=== PATIENT | female | born 1980 | race Caucasian/White ===

== ENCOUNTER → 2022-06-28 10:38 | Outpatient (BNVA) | payer MEDICAID, SELFPAY | PROVIDERS: PCP General Practice; Visit Provider Surgery | DX: K64.5 Perianal venous thrombosis (principal) | CPT/HCPCS: 99202 ==

== ENCOUNTER 2023-02-25 13:30 | Outpatient (REF) | payer MEDICAID, SELFPAY ==
--- NOTE | ~2023-02-25 | MM_ITS ---
EXAMINATION: MM SCREENING DIGITAL BREAST TOMOSYNTHESIS, BILATERAL CLINICAL INFORMATION: Screening. Asymptomatic. The lifetime risk of breast cancer based on the Tyrer-Cuzick Model is 8.2%. COMPARISON: Mammography: There are no prior exams for comparison. TECHNIQUE: Digital breast tomosynthesis is performed in both the craniocaudal and mediolateral oblique views along with computer-aided detection (CAD). Synthesized 2D images are generated from the tomosynthesis. FINDINGS: There are scattered areas of fibroglandular density (ACR BI-RADS breast composition Category b). There are faint calcifications in the upper outer quadrant of the left breast for which additional mammographic imaging with magnification is advised. There are no suspicious masses or areas of architectural distortion in the left breast. There are no mammographic signs of malignancy in the right breast. MM/MM tomosynthesis screening BI IMPRESSION: Grouped calcifications in the left breast warrant additional mammographic imaging magnification. No mammographic signs of malignancy right breast. ASSESSMENT: BI-RADS BI-RADS 0 - Incomplete: Needs additional Imaging. RECOMMENDATION: Additional views of the left breast. Radiology department staff will contact the patient for additional imaging. 1 year F/U This examination should not preclude the clinical evaluation of a suspicious palpable abnormality. This patient's information was entered into a reminder system with a target due date for their next mammogram.
== END 2023-02-25 13:31 | disposition home or self-care (01) ==
LOC: HO.MAMMO 13:30
PROVIDERS: PCP Family Medicine; Visit Provider Family Medicine
DX: Z12.31 Encounter for screening mammogram for malignant neoplasm of breast (principal)
CPT/HCPCS: 77063; 77067

== ENCOUNTER → 2023-02-25 13:45 | Outpatient (BNV) | payer MEDICAID, SELFPAY | PROVIDERS: PCP Family Medicine; Visit Provider Radiology Diagnostic Radiology | DX: Z12.31 Encounter for screening mammogram for malignant neoplasm of breast (principal) | CPT/HCPCS: 77063; 77067 ==

== ENCOUNTER → 2023-03-22 09:00 | Outpatient (BNV) | payer MEDICAID, SELFPAY | PROVIDERS: PCP Family Medicine; Visit Provider Radiology Diagnostic Radiology | DX: R92.1 Mammographic calcification found on diagnostic imaging of breast (principal) | CPT/HCPCS: 76882; 77061; 77065 ==

== ENCOUNTER 2023-03-22 09:15 | Outpatient (REF) | payer MEDICAID, SELFPAY ==
--- NOTE | ~2023-03-22 | US_ITS ---
EXAMINATION: MM DIAGNOSTIC DIGITAL BREAST TOMOSYNTHESIS, LEFT US BREAST LIMITED, LEFT MAMMOGRAPHY: CLINICAL INFORMATION: Follow-up calcifications left breast seen on screening exam, as well as oval mass in the left axillary tail. COMPARISON: Mammography: Screening mammography 02/25/2023, baseline exam. TECHNIQUE: Digital breast tomosynthesis is performed including spot magnification left CC and ML views, and 3-D spot compression left MLO view, along with computer-aided detection (CAD). Synthesized 2D images are generated from the tomosynthesis. FINDINGS: The breasts are heterogeneously dense, which may obscure small masses (ACR BI-RADS breast composition Category c). There is a tightly grouped focus of microcalcifications within the left breast, upper outer quadrant, middle one third, of which the majority appear to layer on the mediolateral projection suggesting milk of calcium. These findings are probably benign, and 6 month interval follow-up recommended to ensure stability. Incidental note made of a 1.8 cm oval mass in the left axillary tail region of the left breast, which will be evaluated by ultrasound. Otherwise, and no additional suspicious findings left breast. ULTRASOUND: CLINICAL INFORMATION: Evaluate oval mass incidentally seen on spot magnification views left breast axillary tail region. COMPARISON: 08/28/2022 mammography, and diagnostic left mammography dated 03/22/2023. TECHNIQUE: Targeted sonographic evaluation left axillary tail region was performed using a high frequency linear transducer. Selected archived documentation. FINDINGS: LEFT BREAST: There is a 1.7 cm length lymph node with prominent fatty hilum and normal cortex in the left axillary tail region, correlating with the focus of mammographic concern. This finding is benign. Otherwise, no suspicious findings are evident. US/US breast LT limited mamm only IMPRESSION: Probably benign focus of milk of calcium grouped calcifications LEFT breast upper outer quadrant, middle one third. To be cautious, 6 month interval follow-up left diagnostic mammography to include standard magnification views recommended to ensure stability. Benign findings on left breast sonography related to benign intramammary lymph node. No further follow-up recommended of this finding. Findings and recommendations were discussed with the patient in detail. OVERALL ASSESSMENT: Mammography: BI-RADS 3 - Probably benign finding(s) - 6 month follow-up suggested Ultrasound: BI-RADS 2, benign. RECOMMENDATION: 6 Month F/U This patient's information was entered into a reminder system with a target due date for their next mammogram.
== END 2023-03-22 09:16 | disposition home or self-care (01) ==
LOC: HO.MAMMO 09:15
PROVIDERS: PCP Family Medicine; Visit Provider Family Medicine
DX: R92.1 Mammographic calcification found on diagnostic imaging of breast (principal)
CPT/HCPCS: 76642; 77065

== ENCOUNTER 2023-11-05 14:21 | Outpatient (REF) | payer MEDICAID, SELFPAY ==
--- NOTE | ~2023-11-05 | MM_ITS ---
EXAMINATION: MM DIAGNOSTIC DIGITAL BREAST TOMOSYNTHESIS, LEFT CLINICAL INFORMATION: Follow-up of probably benign left breast calcifications approximate 3:00 axis. COMPARISON: Mammography: 03/22/2023, 02/25/2023. TECHNIQUE: Digital breast tomosynthesis is performed in the following views: Full-field left CC, MLO, and ML 3-D views, as well as 2-D spot compression views in the left CC x2, and left ML x1. FINDINGS: The breasts are heterogeneously dense, which may obscure small masses (ACR BI-RADS breast composition Category c). There are 2 abutting stable and completely unchanged tightly grouped foci of microcalcifications within the left breast, upper outer quadrant, middle one third, of which the majority appear to layer on the mediolateral projection suggesting milk of calcium. These findings remain probably benign, and 6 month interval follow-up recommended to ensure stability. Stable lymph node in the axillary tail of the left breast. No new suspicious findings. MM/MM tomosynthesis diagnostic LT IMPRESSION: -There are no findings suspicious for malignancy in the left breast. Stable benign findings. -Calcifications in the lateral approximate 3:00 axis remain probably benign, and six-month interval follow-up left diagnostic mammogram is recommended to ensure stability when the patient is due for bilateral screening. This should include standard magnification views. ASSESSMENT: BI-RADS BI-RADS 3 - Probably benign finding(s) - 6 month follow-up suggested RECOMMENDATION: 6 Month F/U Results were provided to the patient at time of visit by the technologist. This patient's information was entered into a reminder system with a target due date for their next mammogram.
== END 2023-11-05 14:22 | disposition home or self-care (01) ==
LOC: HO.MAMMO 14:21
PROVIDERS: PCP Family Medicine; Visit Provider Family Medicine
DX: R92.1 Mammographic calcification found on diagnostic imaging of breast (principal)
CPT/HCPCS: 77061; 77065

== ENCOUNTER → 2023-11-05 14:30 | Outpatient (BNV) | payer MEDICAID, SELFPAY | PROVIDERS: PCP Family Medicine; Visit Provider Radiology Diagnostic Radiology | DX: R92.1 Mammographic calcification found on diagnostic imaging of breast (principal) | CPT/HCPCS: 77061; 77065 ==

== ENCOUNTER 2024-05-12 14:48 | Outpatient (REF) | payer MEDICAID, SELFPAY ==
--- NOTE | ~2024-05-12 | MM_ITS ---
EXAMINATION: MM DIAGNOSTIC DIGITAL BREAST TOMOSYNTHESIS, BILATERAL CLINICAL INFORMATION: Six-month follow-up (for 1 year stability) calcifications, 2 directly abutting groups, left breast approximately 3:00 axis, middle depth. Patient also due for bilateral yearly. COMPARISON: Mammography: 11/05/2023, 03/22/2023, 02/25/2023. TECHNIQUE: Digital breast tomosynthesis is performed in both the craniocaudal and mediolateral oblique views along with computer-aided detection (CAD). Synthesized 2D images are generated from the tomosynthesis. In addition to standard views, 2-D spot magnification left CC x2 and left ML x2 views were obtained. FINDINGS: The breasts are heterogeneously dense, which may obscure small masses (ACR BI-RADS breast composition Category c). Breast parenchyma borders on extremely dense. There are 2 abutting stable and completely unchanged tightly grouped foci of microcalcifications within the left breast, upper outer quadrant, middle one third, of which the majority appear again to layer on the mediolateral projection, suggesting milk of calcium. These calcifications remain probably benign, one year follow-up recommended to ensure stability and establish benignity. Stable lymph node in the axillary tail left breast. Otherwise, are no suspicious masses, developing suspicious grouped calcifications, or areas of architectural distortion in either breast. The heterogeneously dense parenchymal pattern is stable from prior exams. There is no skin or axillary abnormality. MM/MM tomosynthesis diagnostic BI IMPRESSION: -There is no findings suspicious for malignancy in either breast. -Stable grouped calcifications left breast 3:00 axis are without aggressive changes and stable, likely milk of calcium, for which one-year follow-up recommended to establish two-year stability and benignity. ASSESSMENT: BI-RADS BI-RADS 3 - Probably benign finding(s) - 12 month follow-up suggested RECOMMENDATION: 12 month diagnostic follow up Results were provided to the patient at time of visit by the technologist. This patient's information was entered into a reminder system with a target due date for their next mammogram. Electronically signed by: Jeff Carter MD 05/12/2024 03:50 PM EDT
== END 2024-05-12 14:49 | disposition home or self-care (01) ==
LOC: HO.MAMMO 14:48
PROVIDERS: PCP Family Medicine; Visit Provider Family Medicine
DX: R92.1 Mammographic calcification found on diagnostic imaging of breast (principal)
CPT/HCPCS: 77062; 77066

== ENCOUNTER → 2024-05-12 15:00 | Outpatient (BNV) | payer MEDICAID, SELFPAY | PROVIDERS: PCP Family Medicine; Visit Provider Radiology Diagnostic Radiology | DX: R92.1 Mammographic calcification found on diagnostic imaging of breast (principal) | CPT/HCPCS: 77062; 77066 ==

== ENCOUNTER 2025-05-17 14:42 | Outpatient (REF) | payer MEDICAID, SELFPAY ==
--- NOTE | ~2025-05-17 | MM_ITS ---
EXAMINATION(S): MM DIAGNOSTIC DIGITAL BREAST TOMOSYNTHESIS, BILATERAL CLINICAL INFORMATION: This is a 1 year follow-up for left breast calcifications. These calcifications were first described on February 25, 2023. COMPARISON: Comparison made to multiple prior, most recent May 12, 2024, and most remote February 25, 2023. TECHNIQUE: Digital breast tomosynthesis is performed in both the mediolateral oblique and craniocaudal views along with computer-aided detection (CAD). Synthesized 2D images are generated from the tomosynthesis. Magnified spot compression views of the left breast were obtained. FINDINGS: BREAST COMPOSITION: The breasts are heterogeneously dense, which may obscure small masses. RIGHT BREAST: No significant masses, suspicious calcifications or other abnormalities are seen. LEFT BREAST: Previously marked grouped calcifications on the CC view at about 7 cm from the nipple and on the ML 90 degrees at 5 cm from the nipple are unchanged from multiple prior spot magnified compression views from February 2023; at this point, they can be considered a benign finding and no further dedicated follow-up is needed. No significant masses, suspicious calcifications or other abnormalities are seen. MM/MM tomosynthesis diagnostic BI IMPRESSION: RIGHT BREAST: Negative, no mammographic evidence of malignancy. Normal interval follow-up is recommended in 12 months. LEFT BREAST: Benign, no mammographic evidence of malignancy. Patient may return to routine screening mammogram in 12 months. ASSESSMENT: BI-RADS: Category 2: Benign RECOMMENDATION: 1 year F/U Results were provided to the patient at time of visit by the technologist. This patient's information was entered into a reminder system with a target due date for their next mammogram. Electronically signed by: Anurga Zhu MD 05/17/2025 04:03 PM EDT
== END 2025-05-17 14:43 | disposition home or self-care (01) ==
LOC: HO.MAMMO 14:42
PROVIDERS: PCP Family Medicine; Visit Provider Family Medicine
DX: R92.1 Mammographic calcification found on diagnostic imaging of breast (principal)
CPT/HCPCS: 77062; 77066

== ENCOUNTER → 2025-05-17 15:00 | Outpatient (BNV) | payer MEDICAID, SELFPAY | PROVIDERS: PCP Family Medicine; Visit Provider Radiology Body Imaging | DX: R92.8 Other abnormal and inconclusive findings on diagnostic imaging of breast (principal) | CPT/HCPCS: 77062; 77066 ==